=== PATIENT | female | born 1995 | race Caucasian/White ===

== ENCOUNTER 2022-06-04 07:22 | Inpatient (IN) | payer OTHER, MEDICAID ==
[2022-05-28 11:24] LABS: BASOPHILS % (AUTO) 0.5 % (0-1); EOSINOPHILS # (AUTO) 0.2 X10'3 (0-0.9); EOSINOPHILS % (AUTO) 3.4 % (0-6); LYMPHOCYTES # (AUTO) 1.3 X10'3 (1.1-4.8); LYMPHOCYTES % (AUTO) 24.2 % (21-51); MEAN CORPUSCULAR HEMOGLOBIN 29.9 PG (27.0-31.0); MEAN CORPUSCULAR HGB CONC 33.9 g/dL (33.0-36.5); MEAN CORPUSCULAR VOLUME 88.3 FL (78-98); MEAN PLATELET VOLUME 8.8 FL (7.4-10.4); MONOCYTES # (AUTO) 0.3 X10'3 (0-0.9); MONOCYTES % (AUTO) 6.3 % (2-12); NEUTROPHILS # (AUTO) 3.6 X10'3 (1.8-7.7); NEUTROPHILS % (AUTO) 65.6 % (42-75); PRE OP HEMATOCRIT 38.8 % (35.0-45.0); PRE OP HEMOGLOBIN 13.2 g/dL (12.0-16.0); PRE OP PLATELET COUNT 214 X10'3 (140-440); RED BLOOD COUNT 4.39 X10'6 (4.20-5.60); RED CELL DISTRIBUTION WIDTH 13.1 % (11.5-14.5)
[2022-05-28 11:27] LABS: CLARITY,URINE CLOUDY (Clear); COLOR,URINE YELLOW (Yellow); GLUCOSE, URINE NEGATIVE (Neg); KETONES,URINE NEGATIVE (Neg); LEUKOCYTE ESTERASE ,URINE NEGATIVE (Neg); NITRITES, URINE NEGATIVE (Neg); OCCULT BLOOD,URINE SMALL (Neg); PH,URINE 5.5 (4.8-8.0); PROTEIN,URINE NEGATIVE (Neg); UROBILINOGEN,URINE 0.2 E.U/dL (0.2-1.0)
[2022-05-28 11:34] LABS: UA COLLECTION TYPE CLN CATCH MIDSTREAM
[2022-05-28 11:35] LABS: BACTERIA,URINE 2+ /HPF (Neg); MUCUS STRANDS MANY /LPF (Neg); SQUAMOUS EPITHELIAL CELL,UR MANY /LPF (FEW)
[2022-05-28 11:36] LABS: WBC,URINE 0-4 /HPF (0-4)
[2022-05-28 11:37] LABS: APTT 30 SECONDS (22-32)
[2022-05-28 11:39] LABS: HCG SERUM QL NEGATIVE
[2022-05-28 11:43] LABS: ALBUMIN/GLOBULIN RATIO 0.9 (1.1-1.5); ALKALINE PHOSPHATASE 67 IU/L (46-116); BLOOD UREA NITROGEN 18 MG/DL (7-18); CALCIUM 9.1 MG/DL (8.5-10.1); CHLORIDE 104 MMOL/L (99-107); CREATININE 0.72 MG/DL (0.40-0.90); PRE OP ALT 17 U/L (30-65); PRE OP ANION GAP 9 (8-16); PRE OP AST 13 U/L (10-37); PRE OP BILIRUB, TOTAL 0.5 MG/DL (0.0-1.0); PRE OP GLUCOSE 83 MG/DL (70-104); PRE OP POTASSIUM 3.9 MMOL/L (3.4-5.1); PRE OP SODIUM 140 MMOL/L (135-145); TOTAL CARBON DIOXIDE 27.3 MMOL/L (24-32); TOTAL PROTEIN 8.3 G/DL (6.4-8.2); eGFR > 90 ML/MIN
[2022-06-04] VITALS (17 sets, daily range): BP systolic 109–131; BP diastolic 59–82
[~2022-06-04] VITALS: Ht 162.6 cm; Wt 78.9 kg
[~2022-06-04 07:22] MED LIST: CHOL500050 PO; CYAN10007 IM; CYAN1TAB41 PO; DESV25TA PO; FEXO180T94 PO; FLUT16SP11 BOTHNARES; HYDR-3686 PO; ONDA8TAB13 PO; clindamycin-Cleocin 900mg/D5W 50 ML IV ONE; famotidine 20mg tablet PO ONE; ringers solution, lacted 1,000 ML IV SCH
[2022-06-04] MEDS ORDERED: iohexol 300mg/ml 100ml inj. ONE (08:24)
[2022-06-04] MEDS ORDERED: BUPIVAcaine/PF 2.5 mg/ml (0.25%) 30ml vial ONE (09:34)
[2022-06-04] MEDS ORDERED: BUPIVACAINE liposomal/PF 13.3 MG/ML vial IM ONE (09:34)
[2022-06-04] MEDS ORDERED: midazolam 1 mg/ML 2ml injection ONE (09:56)
[2022-06-04] MEDS ORDERED: rocuronium 10mg/ml inj IV ONE (09:58)
[2022-06-04] MEDS ORDERED: fentaNYL /PF 50mcg/ml 5ml ampule ONE (09:58)
[2022-06-04] MEDS ORDERED: propofol inj 20 ML IV ONE (09:58)
[2022-06-04] MEDS ORDERED: ondansetron/PF 4mg/2ml inj IV PRN ×2 (10:05→12:55)
[2022-06-04] MEDS ORDERED: meperidine/PF 25mg/ml syringe IV PRN ×3 (10:05)
[2022-06-04] MEDS ORDERED: morphine 2 MG/ML inj. syringe IV PRN (10:05)
[2022-06-04] MEDS ORDERED: ringers solution, lacted 1,000 ML IV SCH (10:05)
[2022-06-04] MEDS ORDERED: proCHLORperazine 10 MG/2 ml inj IV PRN (10:05)
[2022-06-04] MEDS ORDERED: dexamethasone sod phosphate 10mg/ml inj ONE (10:15)
[2022-06-04] MEDS ORDERED: neostigmine methylsulfate 1 MG/ML 10ml vial ONE (10:15)
[2022-06-04] MEDS ORDERED: glycopyrrolate 0.2mg/ml inj ONE (10:15)
[2022-06-04] MEDS ORDERED: sevoflurane 250ml liquid IH ONE (10:15)
[2022-06-04] MEDS ORDERED: ondansetron/PF 4mg/2ml inj ONE (10:15)
[2022-06-04] MEDS ORDERED: acetaminophen 1000 MG/100ml vial IV ONE (10:15)
[2022-06-04] MEDS ORDERED: ePHEDrine 50MG/ML INJ. ONE (10:15)
[2022-06-04] MEDS ORDERED: meperidine/PF 25mg/ml syringe ONE (12:25)
[2022-06-04] MEDS ORDERED: LIDOcaine 2% (20mg/ml) 5ml vial ONE (12:25)
[2022-06-04] MEDS ORDERED: LIDOcaine 1% (10mg/ml) 2ml vial ONE (12:25)
[2022-06-04] MEDS ORDERED: fentaNYL/PF 50MCG/1 ML 2ML syringe ONE (12:34)
[2022-06-04] MEDS ORDERED: morphine 4 MG/ML inj SYRINge IV PRN (12:55)
[2022-06-04] MEDS ORDERED: metoclopramide 5 mg/ml inj IV PRN (12:55)
[2022-06-04] MEDS ORDERED: albuterol 2.5 MG/3 ML nebule NEB PRN (12:55)
[2022-06-04] MEDS ORDERED: HYDROcodone/acetaminophen 10/325mg tab PO PRN (12:55)
[2022-06-04] MEDS: morphine 4 MG/ML inj SYRINge IV PRN ×2 (12:56→13:10)
[2022-06-04] MEDS: ketorolac tromethamine 15mg/ml inj. IV PRN ×2 (13:12→21:37)
[2022-06-04 13:17] LABS: ABG BASE EXCESS -2.5 mmol/L (-2.0-2.0); ABG HCO3 22.1 mmol/L (22.0-26.0); ABG OXYGEN SATURATION 95.7 % (94-97); ABG PCO2 (T) 37.7 mmHg (32.0-45.0); ABG PO2 (T) 82.7 mmHg (75.0-100.0); FCOHb 0.3 % (0.0-3.9); FMetHb 0.4 % (0.0-1.5); TOTAL HEMOGLOBIN 12.5 G/dl (12.0-16.0)
[2022-06-04] MEDS: morphine 2 MG/ML inj. syringe IV PRN ×2 (15:11→21:37)
[2022-06-04] MEDS: CLINDAMYCIN 600mg IN NS 50ML 50 ML IV SCH ×2 (15:19→19:57)
[2022-06-04] MEDS: potassium Cl 20mEq in D5-NS 1,000 ML IV SCH (19:57)
[2022-06-04] MEDS: gabapentin 300mg capsule PO SCH (19:57)
[2022-06-04] MEDS: HYDROcodone/acetaminophen 10/325mg tab PO PRN (20:46)
[2022-06-05] MEDS: potassium Cl 20mEq in D5-NS 1,000 ML IV SCH ×2 (01:25→10:05)
[2022-06-05] MEDS: CLINDAMYCIN 600mg IN NS 50ML 50 ML IV SCH ×2 (01:54→07:07)
[2022-06-05] MEDS: HYDROcodone/acetaminophen 10/325mg tab PO PRN (03:57)
[2022-06-05] MEDS: ketorolac tromethamine 15mg/ml inj. IV PRN (06:58)
[2022-06-05] MEDS: gabapentin 300mg capsule PO SCH (07:06)
[2022-06-05 07:30] VITALS: BP 117/76
[2022-06-05 08:57] LABS: BASOPHILS % (AUTO) 0.3 % (0-1); EOSINOPHILS % (AUTO) 0.4 % (0-6); HEMATOCRIT 32.7 % (35.0-45.0); HEMOGLOBIN 11.1 g/dl (12.0-16.0); LYMPHOCYTES # (AUTO) 1.4 X10'3 (1.1-4.8); LYMPHOCYTES % (AUTO) 20.3 % (21-51); MEAN CORPUSCULAR HEMOGLOBIN 30.2 PG (27.0-31.0); MEAN CORPUSCULAR HGB CONC 33.8 g/dL (33.0-36.5); MEAN CORPUSCULAR VOLUME 89.2 FL (78-98); MEAN PLATELET VOLUME 8.9 FL (7.4-10.4); MONOCYTES # (AUTO) 0.4 X10'3 (0-0.9); MONOCYTES % (AUTO) 5.7 % (2-12); NEUTROPHILS % (AUTO) 73.3 % (42-75); PLATELET COUNT 171 X10'3 (140-440); RED BLOOD COUNT 3.67 X10'6 (4.20-5.60); RED CELL DISTRIBUTION WIDTH 12.8 % (11.5-14.5); WHITE BLOOD COUNT 6.8 X10'3 (4.5-11.0)
[2022-06-05 09:15] LABS: ALANINE AMINOTRANSFERASE 25 U/L (12-78); ALBUMIN 3.1 G/DL (3.4-5.0); ALBUMIN/GLOBULIN RATIO 0.9 (1.1-1.5); ALKALINE PHOSPHATASE 54 IU/L (46-116); ANION GAP 7 (8-16); ASPARTATE AMINO TRANSFERASE 21 U/L (10-37); BILIRUBIN,TOTAL 0.4 MG/DL (0.1-1.0); BLOOD UREA NITROGEN 9 MG/DL (7-18); BUN/CREATININE RATIO 11.4 (10.0-20.0); CALCIUM 7.9 MG/DL (8.5-10.1); CHLORIDE 108 MMOL/L (99-107); CREATININE 0.79 MG/DL (0.40-0.90); GLUCOSE 137 MG/DL (70-104); POTASSIUM 3.6 MMOL/L (3.5-5.1); SODIUM 141 MMOL/L (135-145); TOTAL CARBON DIOXIDE 25.9 MMOL/L (24-32); TOTAL PROTEIN 6.5 G/DL (6.4-8.2); eGFR 87 ML/MIN
[2022-06-05 10:30] VITALS: BP 128/80
== END 2022-06-05 14:16 | disposition home or self-care (01) | DRG 168 ==
LOC: PAS IN 07:22 → SUR 3N 14:52
PROVIDERS: ADMIT Surgery; ATTEND Surgery
PROC: 8E0W4CZ Robotic Assisted Procedure of Trunk Region, Percutaneous Endoscopic Approach (ICD-10-PCS; 2022-06-04)
PROC: BW241ZZ Computerized Tomography (CT Scan) of Chest and Abdomen using Low Osmolar Contrast (ICD-10-PCS; 2022-06-04)
PROC: 0WBC4ZZ Excision of Mediastinum, Percutaneous Endoscopic Approach (ICD-10-PCS; principal; 2022-06-04 10:15)
DX: J98.59 Other diseases of mediastinum, not elsewhere classified (principal)
CPT/HCPCS: Z7506; Z7508; 36415; 36600; 71045; 71046; 71260; 80053; 81001; 82803; 82948; 84703; 85018; 85025; 85610; 85730; 86885; 86900; 86901; 87081; 93005; A4618; A6258; A6449; A7000; A7048; C1758; C9290; G0378; J0131; J1100; J1885; J2175; J2250; J2270; J2405; J2704; J2710; J3010; J3480; J3490; J7120; Q9967